=== PATIENT | female | born 2000 | race Caucasian/White ===

== ENCOUNTER 2022-07-14 12:58 | Emergency (ER) | payer OTHER, SELFPAY ==
[2022-07-14 13:46] VITALS: BP 118/81; PULSE 112; RESP 20; TEMP 37.3; O2SAT 99
--- NOTE | 2022-07-14 17:15 | ED.GENADULT ---
HPI - General Adult General Chief complaint: Unspecified Stated complaint: DIZZINESS/SPACED OUT Time Seen by Provider: 07/14/22 17:13 Source: patient, family and EMS Mode of arrival: EMS History of Present Illness HPI narrative: 22 years old white female came by ambulance from work with a chief complaint of asthma exacerbation. Patient was at work, one of the coworker used aerosol, few minutes later patient developed tightness in the chest, lightheadedness, shaking, stomach upset,. History of anxiety, panic attack and depression, forgot to take her antianxiety medication for 5 days. Currently feeling weak from head to toes. Unable to move upper or lower extremities, hyperventilating. Related Data Allergies Allergy/AdvReac Type Severity Reaction Status Date / Time No Known Allergies Allergy Verified 07/14/22 17:24 Review of Systems Review of Systems: All systems reviewed & are unremarkable except as noted in HPI and below Exam Narrative: General appearance: Well-developed, well-nourished Skin: Normal color Head: Normocephalic, nontraumatic Eyes: Clear conjunctiva ENT: Oropharynx normal, ears normal, nose normal Neck: Supple, nontender Chest and respiratory: Airway patent, no respiratory distress, no accessory muscle use Heart: Regular rate/rhythm Abdomen: Soft, nontender, no organomegaly, quiet bowel sounds Vascular: Normal peripheral pulses, normal capillary refill. Musculoskeletal: Normal range of motion, nontender back Neurologic: Alert and oriented ?3, [employer] is normal as tested, no gross motor deficit Course Course Emergency Course: Panic that is my concern. Patient had been exposed to aerosol and perfumes numerous of time before with her coworkers without any trouble. Patient forgot to take her antianxiety medication for 5 days in room. Her fluoxetine was doubled 1 month ago. History of depression, anxiety and insomnia. Vital Signs Vital signs: Vital Signs Temperature 37.3 C 07/14/22 13:46 Pulse Rate 112 H 07/14/22 13:46 Respiratory Rate 20 07/14/22 13:46 Blood Pressure 118/81 07/14/22 13:46 Pulse Oximetry 99 07/14/22 13:46 Oxygen Delivery Room Air 07/14/22 13:46 Temperature 37.3 C 07/14/22 13:46 Pulse Rate 90 07/14/22 17:19 Respiratory Rate 20 07/14/22 17:19 Blood Pressure 126/96 H 07/14/22 17:19 Pulse Oximetry 100 07/14/22 17:19 Oxygen Delivery Room Air 07/14/22 13:46 Medical Decision Making Vital Signs Vital Signs: Vital Signs Temperature 37.3 C 07/14/22 13:46 Pulse Rate 112 H 07/14/22 13:46 Respiratory Rate 20 07/14/22 13:46 Blood Pressure 118/81 07/14/22 13:46 Pulse Oximetry 99 07/14/22 13:46 Oxygen Delivery Room Air 07/14/22 13:46 Temperature 37.3 C 07/14/22 13:46 Pulse Rate 90 07/14/22 17:19 Respiratory Rate 20 07/14/22 17:19 Blood Pressure 126/96 H 07/14/22 17:19 Pulse Oximetry 100 07/14/22 17:19 Oxygen Delivery Room Air 07/14/22 13:46 Critical Care Time Critical Care Time Critical Care Time: No Discharge Plan Discharge Clinical Impression: Panic attack as reaction to stress Patient Disposition: Home, Self-Care Condition: Improved Instructions: Antibiotic Form, Panic Attack (ED) Additional Instructions: Return if symptoms are worsening , call your family physician for appointment, take Tylenol as as needed for aches and pain, continue home medications. Follow-up/Referrals: Samara,Gonzalez Deutsch MD [Primary Care Provider] - Stand Alone Forms: Work/School Release IP
[2022-07-14 17:19] VITALS: BP 126/96; PULSE 90; RESP 20; O2SAT 100
[2022-07-14] MEDS: LORazepam (*CRX) 0.5 MG TABLET PO (17:35)
[2022-07-14 19:20] VITALS: BP 113/82; PULSE 97; RESP 17; O2SAT 100
== END 2022-07-14 19:20 | disposition home or self-care (01) ==
PROVIDERS: Emergency Provider Emergency Medicine; PCP Family Medicine
DX: F43.0 Acute stress reaction (principal)
CPT/HCPCS: 99283; A9270